=== PATIENT | male | born 1980 | race African-American/Black ===

== ENCOUNTER 2024-11-22 20:15 | Emergency (ER) | payer SELFPAY ==
[~2024-11-22] VITALS: Ht 177.8 cm; Wt 106.0 kg
[2024-11-22 20:17] VITALS: O2SAT 98
[2024-11-22 20:59] VITALS: BP 171/101; PULSE 68; RESP 16; TEMP 36.8; O2SAT 99
[2024-11-22] MEDS ORDERED: IBUP-2030 MT (22:02)
== END 2024-11-22 22:50 | disposition home or self-care (01) ==
LOC: ER 20:30
DX: L84 Corns and callosities (principal); M79.672 Pain in left foot; Z79.899 Other long term (current) drug therapy
CPT/HCPCS: 99282